=== PATIENT | male | born 1965 | race Caucasian/White ===

== ENCOUNTER 2022-08-06 13:45 | Outpatient (RCR) | payer OTHER, SELFPAY ==
--- NOTE | 2022-07-09 11:55 | PT.OPEX ---
Please sign the attached PT evaluation completed on 07/09/22. Thank you. PT [place] [facility] Eval PT [facility] Outpatient Eval Start: 07/09/22 10:43 Freq: Status: Active Protocol: Document 07/09/22 10:43 TLQ (Rec: 07/09/22 11:51 TLQ [id number]) E-signed By Raven Temple DPT Physical Therapy Outpatient Evaluation Insurance Information Recert Due Date 09/07/22 Insurance Name [employer] Insurance Information/Comments [facility] [employer] Medical Diagnosis Unilateral primary osteoarthritis, right knee Treating Diagnosis Pain in right knee Stiffness of right knee Muscle weakness Referring MD Leblanc Subjective Subjective Has had right knee for the past 6-8 months. Pain doesn't bother him much when he's walking, mostly makes it difficult to get up out of chairs. His right knee gets sore and stiff if he sits down for an extended period of time. Able to sit for about 30 minutes prior to symptom onset, better when he sits with his leg straight out in front of him versus bent. Saw Dr. Leblanc, had an x-ray taken which indicated arthritis in his right knee. Not currently taking any medications or using topical treatments to help relieve symptoms. 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 Precautions Therapy Limitations/Systems Review Not Limited Objective Range of Motion L knee AROM: -2-9-127 R knee AROM: 2-11-122, mild pain at end-range flexion R popliteal angle: 55 degrees Strength Hip strength: flexion - L 5, R 5 extension - L 5, R 4+ abduction - L 5, R 5 adduction - L 5, R 5 internal rotation - L 4+, R 4+ external rotation - L 4+, R 4 Knee strength: flexion - L 4+, R 4+ extension - L 4+, R 4+ Ankle strength: dorsiflexion - L 5, R 5 plantarflexion L 14 SLHR, R 14 SLHR Palpation TTP: medial tibiofemoral joint line on R Other/Pertinent Objective Hypomobile medial/lateral patellar glides on R (-) for pain or laxity with all ligamentous tests (-) for pain with Juan's test Mild improvement in symptoms with R tibiofemoral distraction 5xSTS: 11 seconds, arms crossed, increased pain in R knee SLS: up to 30 seconds bilaterally TTP: medial tibiofemoral joint line on R Functional Test Performed & Score LEFS: 66/80 Assessment Assessment/Impression Gregorio is a 57 year old male who presents to therapy today with medial right knee pain of 8 months in duration. He has consulted with an orthopedic doctor and had diagnostic imaging, MRI and x-ray taken of his right knee. Imaging indicates osteoarthritis in his right knee. Pain primarily limits his ability to sit comfortably for more than 30 minutes at a time, fully flex his knee, and transition from sitting to standing without pain or stiffness in his right knee. Upon examination he was found to have decreased active right knee extension range of motion. Patellar glides were limited on the right but improved with repetition. Demonstrates mild gross lower extremity weakness and hamstring tightness on the right. He reported a mild improvement in symptoms with tibiofemoral distraction. Based on the above findings, M . will benefit from skilled physical therapy to increase lower extremity strength and range of motion for pain-free mobility. Primary Functional Limitations right knee pain, sit<>stand, prolonged sitting, stiffness in right knee, muscle weakness , decreased right knee AROM, tight hamstrings Plan of Care Rehabilitation Potential Good Physical Therapy Goals In 3-4 visits: - Subjective reports of pain will decrease to <4/10. - M. will be able to sit for up to 45 minutes at a time without feelings of stiffness in his right knee. In 6-8 visits: - Subjective reports of pain will decrease to <2/10 at worst to tolerate sitting for <1 hour prior to symptom onset . - M. will complete the 5xSTS without reports of right knee pain for improved functional mobility. - Gross lower extremity strength will increase to 5/5. - M. will adhere to a HEP in order to manage symptoms IND at home. Treatment Plan/Direct Interventions Manual Therapy,Neuromuscular Re-ed,Self-Care/Home Management,Therapeutic Activities,Therapeutic Exercises Frequency/Duration 1x/week for 6-8 visits Patient Will Be Discharged From Therapy Completion of LTG(s),Skills Plateau,Independent w/HEP, Independently Progressing Evaluation Billing Untimed Code Treatment Minutes 22 Complexity Low Certification Information Initial Certification Date 07/09/22 Ending Certification Date 09/07/22 Provider Signature Shows Agreement With POC & Medical Necessity Physician Signature & Date Requested Please Sign/Date Here Physician Comment/Change : Physician NPI Number #
== END 2023-01-15 23:59 | disposition home or self-care (01) ==
PROVIDERS: PCP Family Medicine; Visit Provider Orthopaedic Surgery
DX: M25.561 Pain in right knee (principal); M25.661 Stiffness of right knee, not elsewhere classified; Z51.89 Encounter for other specified aftercare
CPT/HCPCS: 97110; 97140; 97161

== ENCOUNTER 2022-09-21 12:06 | Outpatient (CLI) | payer OTHER, SELFPAY | END 2022-09-21 12:07 | disposition home or self-care (01) | LOC: NFLDREF 09-22 13:48 | PROVIDERS: Visit Provider Nurse Practitioner Family | DX: R30.0 Dysuria (principal); N39.0 Urinary tract infection, site not specified | CPT/HCPCS: 87086; 87186 ==

== ENCOUNTER 2023-11-01 13:28 | Emergency (ER) | payer BC, SELFPAY ==
[2023-11-01 13:47] VITALS: BP 169/111; PULSE 68; RESP 18; TEMP 36.3; O2SAT 95; BMI 30.4
--- NOTE | 2023-11-01 14:22 | ED.GENADULT ---
HPI - General Adult General Chief complaint: Laceration/Wound Stated complaint: head lac Time Seen by Provider: 11/01/23 13:52 Source: patient Mode of arrival: ambulatory Limitations: no limitations History of Present Illness HPI narrative: 58-year-old male coming in today with a scalp laceration. Patient was riding a lawnmower when he tried to duck under a branch but did not duck far enough and the branch snag his scalp as he kept driving forward. He denies losing consciousness, he denies having headache. He denies hitting his head against anything forcefully. Last tetanus updated in 2021. Related Data Home Medications Medication Instructions Recorded Confirmed atenolol 100 mg tablet 100 mg PO 05/28/22 09/21/22 hydrochlorothiazide 25 mg tablet 25 mg PO 05/28/22 09/21/22 losartan 100 mg tablet 100 mg PO 05/28/22 09/21/22 simvastatin 40 mg tablet 40 mg PO 05/28/22 09/21/22 cephalexin 500 mg capsule 500 mg PO BID 09/21/22 09/21/22 Allergies Allergy/AdvReac Type Severity Reaction Status Date / Time No Known Drug Allergies Allergy Verified 09/21/22 12:32 Review of Systems Status of ROS: Reports: 6 or more systems reviewed and unremarkable except as noted in History and below PFSH [facility] Medical History Urinary tract infection ?N39.0 - Urinary tract infection, site not specified (ICD-10) High cholesterol ?E78.00 - Pure hypercholesterolemia, unspecified (ICD-10) Hypertension ?I10 - Essential (primary) hypertension (ICD-10) Surgical History History of back surgery ?Z98.890 - Other specified postprocedural states (ICD-10) Social History Smoking Status: Never smoker Exam Narrative: Exam Narrative: Well-nourished well-developed patient in no acute distress. Alert and oriented. Answers questions appropriately. Mood and affect are appropriate. Thoughts are goal oriented and rational. No tangential or magical thinking noted. Patient speaks in full sentences without needing to catch his breath. HEENT: Normocephalic . Pupils are equally round reactive to light. Extraocular muscles are intact. Conjunctivae are moist without any icterus noted. Moist mucous membranes. Posterior center scalp patient has approximately 4 cm laceration or, scalp underneath is not visible. Skin: Well perfused. Const: Vital Signs, click to edit/add: Vital Signs - 24 hr 11/01/23 13:47 Temperature 97.4 F L Pulse Rate [Left P ulse Oximeter] 68 Respiratory Rate 18 Blood Pressure [Le ft Upper Arm] 169/111 H Pulse Oximetry 95 Oxygen Delivery Me thod Room Air Course Course ED Course: Wound was cleaned and then anesthetized with lidocaine. Thirteen marva were placed with great skin approximation and hemostasis achieved. Vital Signs Vital signs: Initial Vital Signs Temperature 97.4 F L 11/01/23 13:47 Temperature Source Temporal Artery Scan 11/01/23 13:47 Pulse Rate 68 11/01/23 13:47 Pulse Rhythm Regular 11/01/23 13:47 Pulse Strength 3+ Normal 11/01/23 13:47 Respiratory Rate 18 11/01/23 13:47 Blood Pressure 169/111 H 11/01/23 13:47 Blood Pressure Mean 130 H 11/01/23 13:47 Blood Pressure Position Sitting 11/01/23 13:47 Pulse Oximetry 95 11/01/23 13:47 Oxygen Delivery Method Room Air 11/01/23 13:47 Vital Signs Temperature 97.4 F L 11/01/23 13:47 Pulse Rate 68 11/01/23 13:47 Respiratory Rate 18 11/01/23 13:47 Blood Pressure 169/111 H 11/01/23 13:47 Pulse Oximetry 95 11/01/23 13:47 Oxygen Delivery Method Room Air 11/01/23 13:47 Temperature 97.4 F L 11/01/23 13:47 Pulse Rate 68 11/01/23 13:47 Respiratory Rate 18 11/01/23 13:47 Blood Pressure 169/111 H 11/01/23 13:47 Pulse Oximetry 95 11/01/23 13:47 Oxygen Delivery Method Room Air 11/01/23 13:47 Medical Decision Making MDM Narrative Medical decision making narrative: 58-year-old male with scalp laceration treated per above. Discharge Plan Discharge Clinical Impression: Laceration of scalp Patient Disposition: Home, Self-Care Condition: Improved Additional Instructions: Keep scalp clean and dry. Okay to shower like you normally would, but do not soak it such as going swimming. Watch for signs of infection which include purulent drainage from the laceration, redness of the skin surrounding the laceration. If this occurs follow-up in the ER or through primary care provider right away. [place] should be removed in approximately 1 week with your primary care provider. Last tetanus shot was updated in 2021. Prescriptions: No Action cephalexin 500 mg capsule 500 mg PO BID losartan 100 mg tablet 100 mg PO hydrochlorothiazide 25 mg tablet 25 mg PO atenolol 100 mg tablet 100 mg PO simvastatin 40 mg tablet 40 mg PO Follow Up/Referrals: Provider,Not a Local [Primary Care Provider] - Stand Alone Forms: [employer] Info Instructions
== END 2023-11-01 14:28 | disposition home or self-care (01) ==
PROVIDERS: Emergency Provider Family Medicine
DX: S01.01XA Laceration without foreign body of scalp, initial encounter (principal); W22.8XXA Striking against or struck by other objects, initial encounter
CPT/HCPCS: 12002; 99283; 99284

== ENCOUNTER 2024-01-04 17:19 | Outpatient (CLI) | payer BC, SELFPAY | END 2024-01-04 17:20 | disposition home or self-care (01) | LOC: NFLDREF 23:55 | PROVIDERS: PCP Physician Assistant; Visit Provider Physician Assistant | DX: R35.0 Frequency of micturition (principal) | CPT/HCPCS: 87086 ==